=== PATIENT | female | born 1995 | race Caucasian/White ===

== ENCOUNTER 2023-06-27 10:57 | Emergency (ER) | payer BC, SELFPAY ==
[2023-06-27 10:58] VITALS: BP 131/107
--- NOTE | 2023-06-27 11:29 | ED.GENMED ---
History of Present Illness
General
Chief Complaint: Problems
Source: patient
Exam Limitations: none
Time Seen by Provider: 06/27/23 11:03
Travel History
Have you had any contact with someone who has COVID-19?: No
Do you have any symptoms of coronavirus? Fever > 100 degrees, chills, cough, shortness of breath, sore throat, loss of taste or smell, muscle aches, or headache?: No
History of Present Illness
History of Present Illness:
G3, P0, 7 weeks complaining of episodes of sharp very brief but relatively frequent perineal stabbing-like pain watery clear discharge and some cramping. Also notes less morning sickness and less breast tenderness. Very upset and worried
about a possible miscarriage. She has had 2 previous miscarriages.
Past History
Past History
ED Past Medical History: Seizures, Psychiatric (Fibromyalgia, anxiety, depression), Other (colon Polyps, gastritis, migraine) and Other (Pneumomediatinum 2013)
ED Past Surgical History: Gynecological
Social History
Tobacco: Non-smoker
Alcohol: Occasional
Drug: Marijuana (medical marijuana)
Personal: Single
Living: alone
Employment: Employed (freight associate)
Family History
Family History: Negative Diabetes, Hypertension or CAD
Review of Systems
Review of Systems
All Other Systems: Not applicable
Constitutional: Denies fever
: Denies frequency or bleeding
Phy Exam
Physical Exam
Physical Exam:
GENERAL: Alert and oriented. Nontoxic but upset and crying
EYE: Orbits normal.
NECK: Supple
CARDIAC: Regular rate and rhythm without any obvious murmurs.
LUNGS: Clear breath sounds,normal
ABDOMEN: Soft, without focal tenderness or distention
NEUROLOGICAL: Alert and oriented , grossly non-focal
SKIN: Warm and dry
PSYCH: Normal and appropriate interaction.
Course
Orders/Labs/Results
Orders:
Orders
06/27/23 11:06
0.9% Sodium Chloride 1000 ml [Nss] 1,000 ml IV BOLUS
06/27/23 11:33
Blood Group&Type Urgent
Basic Metabolic Panel Urgent
Beta HCG Quantitative Urgent
Is this a screen?: No
Complete Blood Count/With Diff Urgent
06/27/23 12:48
US 1st Trimester Urgent
Reason For Exam: /pelvic pain.
06/27/23 14:02
Urinalysis Reflex To Culture Urgent
Date Specimen was Collected: 06/27/23
Time Specimen was Collected: 13:52
Abnormal Lab Results
06/27/23 06/27/23
11:33 14:02
MCH 32.5 H pg
(27.0-31.0)
RDW 11.3 L %
(11.5-14.5)
Absolute Lymphs (auto) 1.0 L 10^3/uL
(1.2-3.4)
Absolute Monos (auto) 0.7 H 10^3/uL
(0.1-0.6)
Neutrophils % 76.2 H %
(42.2-75.2)
Lymphocytes % 13.7 L %
(20.5-51.1)
Sodium 133 L mmol/L
(135-145)
Potassium 3.4 L mmol/L
(3.5-5.1)
BUN 6 L mg/dl
(7-17)
Creatinine 0.5 L mg/dL
(0.6-1.0)
Urine Ketones 1+ A
(Negative)
06/27/23 11:33
06/27/23 11:33
Vital Signs
Initial and Last Documented VS:
Initial Vital Signs
Temp Pulse Resp BP Pulse Ox
98.2 F 72 18 131/107 99
06/27/23 10:58 06/27/23 10:58 06/27/23 10:58 06/27/23 10:58 06/27/23 10:58
Last Documented Vital Signs
Temp Pulse Resp BP Pulse Ox
98.2 F 98 17 146/73 98
06/27/23 10:58 06/27/23 15:26 06/27/23 15:26 06/27/23 15:26 06/27/23 15:26
Information
Weeks gestation: Weeks: (7)
Location: Location: ([facility])
MDM/Problems Addressed
Differential Diagnosis Includes:
G3, P0 7-week. Last quantitative hCG on June 12 was 5400. Concern for miscarriage,. Ectopic course in the differential. Workup in progress
*Radiology
Radiology exam reviewed: radiology read reviewed (6-week 6-day IUP. Heart rate 143.)
*Pulse Oximetry
Patient hypoxic: no
*Critical Care Note
Total Time (30-74mins, 75-104mins- exclusive of procedures): Not Applicable
Data Reviewed
Review of Other/Old Records Reveals: Labs, Records, Radiology Studies and Operative Reports
Update Note
Update Note:
IUP. No serious etiology for patient's sharp intermittent pelvic pain. Currently IUP. Stable for discharge to follow-up
ED Attending Note
-
Portions of this chart may have been created with voice recognition software.� Occasional wrong word or��sound alike� substitutions may have occurred due to the inherent limitations of voice recognition software.
Discharge Plan
Departure
Patient Disposition: Home (Routine Discharge)
Date of Disposition: 06/27/23
Time of Disposition: 15:16
Patient with high blood pressure during this ER visit?: Yes
Discharge Problem:
Pelvic pain, Intrauterine
Instructions: Pelvic Pain (DC), BLOOD PRESSURE
Prescriptions:
No Action
Briviact 25 MG tablet
50 mg PO BID
valacyclovir [Valtrex] 500 mg Tablet
500 mg PO DAILY
lamotrigine [Lamictal] 25 mg Tablet
50 mg PO .DAILY IN A.M.
folic acid 1 mg Tablet
1 mg PO DAILY
lamotrigine [Lamictal] 25 mg Tablet
25 mg PO QPM
Medical Cannibus
inhalation Q12
Referrals:
Kristi Quiles MD [Family Provider] -
Activity Restrictions/Additional Instructions:
Call your SENIOR ADVISOR doctor first thing Thursday morning for close follow-up
Return with increasing pain vaginal bleeding fever or any other concerning symptoms
Tylenol only for pain
Interventions
Interventions:
*Risk Screen - Suicide Last Done: 06/27/23 12:56
*General Assessment Last Done: 06/27/23 12:56
*Neglect/Abuse Screening Last Done: 06/27/23 12:56
ED- Fall Risk Assessment Last Done: 06/27/23 15:20
*ED COVID-19 Vaccine History Last Done: 06/27/23 12:56
*Nursing Disposition Last Done: 06/27/23 15:20
ED-Female Genitourinary Assessment Last Done: 06/27/23 12:56
Discharge Date and Time
Discharge Date/Time: 06/27/23 15:20
[2023-06-27] MEDS: NSS 1000 IV (11:33)
[2023-06-27 11:56] LABS: % Basophils 0.1 % (0-2); % Eosinophils 0.6 % (0-6); % Immature Granulocytes 0.1 % (0-0.5); % Lymphocytes 13.7 % (20.5-51.1); % Monocytes 9.3 % (1.7-9.3); % Neutrophils 76.2 % (42.2-75.2); Absolute Monocytes 0.7 10^3/uL (0.1-0.6); Absolute Neutrophils 5.4 10^3/uL (1.4-6.5); Hematocrit 40.8 % (37.0-47.0); Mean Corp Hgb Conc. 36.8 g/dL (33.0-37.0); Mean Corpuscular Hgb 32.5 pg (27.0-31.0); Mean Corpuscular Volume 88.5 fL (81.0-99.0); Mean Platelet Volume 9.8 fL (7.4-10.4); Nucleated Red Blood Cells % 0 %; Platelet Count 224 10^3/uL (130-400); Red Blood Cell Count 4.61 10^6/uL (4.20-5.40); Red Cell Dist. Width 11.3 % (11.5-14.5); White Blood Cell Count 7.1 10^3/uL (4.8-10.8)
[2023-06-27 11:59] LABS: Blood Urea Nitrogen 6 mg/dl (7-17); Calcium 9.1 mg/dl (8.4-10.2); Carbon Dioxide 23 mmol/L (22-30); Chloride 102 mmol/L (98-107); Glucose 99 mg/dl (70-99); Potassium 3.4 mmol/L (3.5-5.1); Sodium 133 mmol/L (135-145); eGFR > 60.00
--- NOTE | 2023-06-27 12:43 | EDRN ---
Spoke with the patient and she stated she felt her bladder was full for US. Notified Grade Checker that the patient was feeling full. Made aware that the HCG numbers were not back from the lab yet. Patient now in the room banging against the glass
yelling that she needs the nurse. Entered the room to see patient walking around yelling that she has to go to the bathroom so bad. updated her that the one test was not back yet and there was also another patient in [place] that she would be next. Lab
contacted at 1231 to be informed that the specimen needed to be diluted and would be 25 more minutes. Patient inconsolable.
[2023-06-27 14:37] LABS: Urine Albumin Negative (Neg - Trace); Urine Bilirubin Negative (Negative); Urine Character Slightly Cloudy (Clear); Urine Color Yellow; Urine Glucose Negative (Negative); Urine Ketone 1+ (Negative); Urine Leukocyte Negative (Negative); Urine Nitrite Negative (Negative); Urine Occult Blood Negative (Negative); Urine Urobilinogen Negative (Neg - 1+); Urine pH 6.5 (5.0-9.0)
[2023-06-27 15:26] VITALS: BP 146/73
== END 2023-06-27 15:20 | disposition home or self-care (01) ==
LOC: EMR 10:57
PROVIDERS: EMERGENCY PHYSICIAN Emergency Medicine; FAMILY PHYSICIAN Student in an Organized Health Care Education/Training Program
DX: O26.891 Other specified pregnancy related conditions, first trimester (principal); R10.2 Pelvic and perineal pain; Z3A.01 Less than 8 weeks gestation of pregnancy
CPT/HCPCS: 99284; 96360; 76801; 80048; 81003; 84702; 85025; 86900; 86901

== ENCOUNTER → 2024-10-05 07:47 | Outpatient (REF) | payer OTHER, SELFPAY | LOC: PAVMRI 07:47 | PROVIDERS: ATTENDING PHYSICIAN Internal Medicine; FAMILY PHYSICIAN Student in an Organized Health Care Education/Training Program | DX: M25.461 Effusion, right knee (principal) | CPT/HCPCS: 73721 ==